=== PATIENT | female | born 1955 | race Caucasian/White ===

== ENCOUNTER 2023-06-20 06:01 | Day surgery (SDC) | payer OTHER, SELFPAY ==
[2023-06-14 07:47] VITALS: BMI 34.4
--- NOTE | 2023-06-19 12:06 | PM.HP.1 ---
History of Present Illness History of Present Illness Chief complaint: Spinal Cord Stimulator Insertion Narrative: 67 year old female with prior L5-S1 fusion presenting with chronic low back and bilateral leg pain. had prior spinal cord stimulator trial with positive response. she is here today for the implantation of a permanent device. [facility] Medical History (Updated 06/20/23 @ 07:47 by Jarod Calvin MD) Depression Anxiety HLD (hyperlipidemia) SCOOTER on CPAP Asthma HTN (hypertension) Surgical History (Updated 06/20/23 @ 07:47 by Jarod Calvin MD) History of lumbar spinal fusion (2019) History of lumbar spinal fusion (2015) History of repair of hiatal hernia History of total right knee replacement (2019) History of total right knee replacement (2015) Hx of tonsillectomy History of hysterectomy Hx of cholecystectomy Hx of appendectomy Social History household members: friend(s) Smoking Status: Former smoker alcohol intake: current Meds Home Medications and Allergies Home Medications Medication Instructions Recorded Confirmed Type albuterol sulfate 90 mcg/actuation 2 puff inhalation Q4-6H PRN 06/14/23 06/20/23 History aerosol inhaler Shortness Of Breath amlodipine 10 mg tablet 5 mg PO BID 06/14/23 06/20/23 History buprenorphine HCl 8 mg sublingual 12 mg sublingual DAILY 06/14/23 06/20/23 History tablet duloxetine 60 mg capsule,delayed 60 mg PO BEDTIME 06/14/23 06/20/23 History release metoprolol tartrate 100 mg tablet 100 mg PO BID 06/14/23 06/20/23 History montelukast 10 mg tablet 10 mg PO BEDTIME 06/14/23 06/20/23 History pantoprazole 40 mg tablet,delayed 40 mg PO BID 06/14/23 06/20/23 History release pravastatin 20 mg tablet 20 mg PO BEDTIME 06/14/23 06/20/23 History tizanidine 4 mg capsule 4 mg PO TID 06/14/23 06/20/23 History trazodone 50 mg tablet 50 mg PO BEDTIME 06/14/23 06/20/23 History Allergies Allergy/AdvReac Type Severity Reaction Status Date / Time oxycodone Allergy Rash, Verified 06/20/23 07:12 nausea/vomiting, shortness of breath propoxyphene Allergy Hives, Verified 06/20/23 07:12 rash, shortness of breath hydralazine AdvReac Severe Reflex Verified 06/20/23 07:12 tacycardia, chest pain, arrhythmia atenolol AdvReac Asthma, Verified 06/20/23 07:12 shortness of breath lisinopril AdvReac Cough, Verified 06/20/23 07:12 loss of voice Penicillins AdvReac Shortness Verified 06/20/23 07:12 of breath salicylates AdvReac Nausea Verified 06/20/23 07:12 Exam HENMT Other: within normal limits Back/Spine/Pelvis Other: within normal limits Skin Other: within normal limits Neuro Other: within normal limits Assessment & Plan Assessment and plan (1) Lumbar radiculopathy: Status: Acute (2) Post laminectomy syndrome: Status: Acute
[2023-06-20] VITALS (11 sets, daily range): BP systolic 89–150; BP diastolic 45–88; PULSE 63–79; RESP 12–18; TEMP 36.1–37.1; O2SAT 93–100; BMI 34.4
[2023-06-20] MEDS: ACETAMINOPHEN 325 MG TABLET 975 MG PO (07:17)
[2023-06-20] MEDS: LACTATED RINGERS 1,000 ML 42 ML IV (07:17)
[2023-06-20] MEDS: CEFAZOLIN 2 GM/100 ML PREMIX 100 ML IV (08:17)
--- NOTE | 2023-06-20 08:36 | SUR.OPER ---
Prone on padded flat timothy table frame, head in foam head support, gel chest rolls, gel pad under knees, pillow under lower legs, toes free of pressure, arms secured on padded arm boards at <90 degrees abduction. Safety belt at thigh.
[2023-06-20] MEDS: BUPIVACAINE 0.25% (PF) 30 ML, EPINEPHrine 0.15 MG INJ (08:52)
--- NOTE | 2023-06-20 09:33 | DI.RAD.S_ITS ---
PROCEDURE: XR THORACIC SPINE 2V INDICATIONS: STIMULATOR IMPLANTATION TECHNIQUE: 2 intraoperative views of the thoracic spine were acquired. COMPARISON: None. FINDINGS: Intraoperative views during spinal cord stimulator placement. IMPRESSION: Intraoperative views during spinal cord stimulator placement. Dictated by: Joe Frost M.D. on 06/20/2023 at 10:54 Approved by: Joe Frost M.D. on 06/20/2023 at 10:57
[2023-06-20] MEDS: HYDROMORPHONE 1 MG INJ IV ×2 (10:22→10:27)
[2023-06-20] MEDS: hydrOXYzine 50 MG/ML INJ 25 MG IM (10:22)
--- NOTE | 2023-06-20 11:08 | PM.OP.1 ---
Operative Date/Time/Diagnoses Date of procedure: 05/21/23 Time of procedure: 07:45 Pre-op diagnosis: lumbar radiculopathy history of lumbar fusion post laminectomy syndrome Post-op diagnosis: same Procedure & Clinicians Procedure: spinal cord stimulator implantation of pulse generator and leads Same procedure as scheduled: Yes Indications: Intractable back and leg pain Surgeon: Jarod Sanchez Yes if Unassisted: Yes Anesthesia Type: General Operative Notes Findings: none Closure Type: primary Specimen(s): none sent Prosthetic devices, grafts, tissues, transplants, or devices: [employer] 50 cm 8 contact leads x 2 click X anchor x 2 Wave financial writer alpha pulse generator Estimated Blood Loss (mL): 10 Blood products transfused: none Tourniquet time (min): 0 Procedure in detail: Patient was consented in the preoperative area With the risks benefits and alternatives. 2 g of Ancef was given intravenously prior to the start of the procedure. She was placed prone onto the fluoroscopic table. Area of her thoracolumbar spine and the right flank was carefully cleansed with ChloraPrep. Physician donned sterile gown and gloves and masks. She was draped in usual fashion, and with Ioban over the skin. Fluoroscopy was used to localize the T12-L1 interspace. At 1 spinal level below, an incision was made at the spinous processes of L1-2 after anesthetization of 0.25% bupivacaine with epinephrine. Careful dissection was made down into the fascial layer. Using a curved Coude needle, and in a left paramedian fashion, The needle was advanced into the T12-L1 epidural space using nynt-so-vhqvowaysg technique. A 50 cm 8 contact lead was advanced under pulsed live fluoroscopy until it was at the left midline T8. Next using a second curved coud? needle, and in a right paramedian fashion, a needle was advanced into the T12-L1 epidural space. A second 50 cm lead was advanced up to the top of right T8 paramedian. We were able to cover the T8 to top of T10 space. Coverage on the trial was achieved over T8-9.Lateral view demonstrating dorsal posterior placement of the leads. Using 2 click anchors, both leads were adhered to the fascia using fixate suture device.Next attention was turned to the right flank, where an incision was made for placement of the pulse generator. Careful dissection down past the skin and subcutaneous layer to the fascial layer, blunt dissection was used to make a pocket big enough to accommodate the pulse generator. The leads were then tunneled to the pocket from the midline incision using curved needles.The leads were then connected to the pulse generator, with green impedances on all 16 contacts. Both incision sites were irrigated with normal saline.Closure of the deep fascial layers With 2-0 Vicryl. Subcutaneous layer closed with 3-0 Monocryl. Dermal layer closed using running 4-0 Monocryl. Skin was closed with Mastisol and Steri-Strips with Tegaderm overlying.The device was turned on by the spinal cord stimulator quality audit representative on the low setting Complications: none Post-operative Condition: stable Disposition: same day surgery Plan for aftercare: Instructions were given to the patient. She has a scheduled follow-up on July 03 for suture removal, and additional programming of the device. She has instructions to avoid excessive bending lifting twisting and nothing over 15 pounds for the next 4 to 6 weeks to allow healing.
[2023-06-20] MEDS: HYDROMORPHONE 4 MG TABLET PO (11:13)
[2023-06-20] MEDS: diazePAM 5 MG TABLET PO (11:14)
--- NOTE | 2023-06-23 12:23 | PC.NURSE ---
Pt is currently at [facility] ED. Records requested for continuity of care. Faxed to [facility].
== END 2023-06-20 13:06 | disposition home or self-care (01) ==
PROVIDERS: PCP Nurse Practitioner Family; Referring Provider Physical Medicine & Rehabilitation; Visit Provider Physical Medicine & Rehabilitation
PROC: (CPT 63685; principal; 2023-06-20 07:45)
DX: M96.1 Postlaminectomy syndrome, not elsewhere classified (principal); M54.16 Radiculopathy, lumbar region; G89.4 Chronic pain syndrome
CPT/HCPCS: 63685; 63650; 72070; 76000; C1776; J0171; J0330; J0690; J1100; J1170; J2405; J2704; J3010; J3410

== ENCOUNTER → 2024-02-08 12:20 | Outpatient (CLI) | payer OTHER, SELFPAY ==
--- NOTE | 2024-02-08 12:25 | DI.RAD.S_ITS ---
PROCEDURE: XR CHEST 2V INDICATIONS: Shortness of breath TECHNIQUE: 2 views of the chest were acquired. COMPARISON: [facility] Outside Film, RG, CHEST 1VW, 06/25/2023, 12:20. FINDINGS: Surgical changes and devices: Thecal leads. Cholecystectomy clips. Lungs and pleura: Prominent pulmonary markings. Diffuse hazy opacity. Rebecca B lines. Blunting of the left costophrenic angle due to small pleural effusion. No pneumothorax. Mediastinum: Mediastinal contours are unchanged. Heart size is within normal limits. Bones and chest wall: No suspicious bony abnormalities. Soft tissues appear unremarkable. IMPRESSION: Pobe-cs-wvcjsrmd fluid overload/CHF. Small left pleural effusion. Dictated by: Ricco Eduardo M.D. on 02/11/2024 at 8:47 Approved by: Ricco Eduardo M.D. on 02/11/2024 at 8:52
== END ==
LOC: RAD 12:24
PROVIDERS: PCP Nurse Practitioner Family; Visit Provider Registered Nurse
DX: J45.901 Unspecified asthma with (acute) exacerbation (principal); R06.02 Shortness of breath; J90 Pleural effusion, not elsewhere classified; I50.9 Heart failure, unspecified
CPT/HCPCS: 71046